=== PATIENT | male | born 1985 | race Caucasian/White ===

== ENCOUNTER 2017-08-06 16:14 | Emergency (ER) | payer SELFPAY ==
[2017-08-06 16:21] VITALS: BP 126/82
[2017-08-06] MEDS ORDERED: BOOSTRIX IM ONE (16:35)
[2017-08-06] MEDS ORDERED: TETRACAINE 0.5% OU PRN (16:35)
[2017-08-06] MEDS ORDERED: PERCOCET 5/325 PO ONE (16:35)
[2017-08-06] MEDS ORDERED: FUL-GLO OP ONE (16:35)
[2017-08-06] MEDS ORDERED: ISOPTO HOMATROPINE OS ONE (17:14)
--- NOTE | 2017-08-06 17:22 | Emergency Department Report ---
ED Eye Problem HPI - General Chief complaint: Eye Problems Stated complaint: LEFT EYE PAIN Time Seen by Provider: 08/06/17 16:31 Source: patient Mode of arrival: Ambulatory Limitations: No Limitations - History of Present Illness Initial comments: Mr. Moraes poked himself in the eye with the edge of a broom. chief complaint: eye pain, eye redness, eye injury -: Sudden Location: left eye Place: work If Injury: direct trauma Eye Symptoms: burning, pain, decreased vision, photophobia Severity: severe Severity scale (0 -10): 10 Consistency: constant - Related Data Previous Rx's Medication Instructions Recorded Last Taken Type Oxycodone HCl/Acetaminophen 1 each PO Q6HR PRN #12 tablet 08/06/17 Unknown Rx [Percocet 10/325 mg] Polymyxin B Sulf/Trimethoprim 10 ml OS Q3H 7 Days #10 drops 08/06/17 Unknown Rx [Polytrim Eye Drops] Allergies Allergy/AdvReac Type Severity Reaction Status Date / Time No Known Allergies Allergy Unverified 08/06/17 16:21 ED Review of Systems ROS: Stated complaint: LEFT EYE PAIN Other details as noted in HPI ED Past Medical Hx - Past Medical History Previous Medical History?: No - Surgical History Past Surgical History?: No - Medications Home Medications: Home Medications Medication Instructions Recorded Confirmed Last Taken Type Oxycodone HCl/Acetaminophen 1 each PO Q6HR PRN #12 tablet 08/06/17 Unknown Rx [Percocet 10/325 mg] Polymyxin B Sulf/Trimethoprim 10 ml OS Q3H 7 Days #10 drops 08/06/17 Unknown Rx [Polytrim Eye Drops] ED Physical Exam - General Limitations: No Limitations General appearance: alert, in no apparent distress - Head Head exam: Present: atraumatic, normocephalic - Eye Eye exam: Present: PERRL, EOMI, conjunctival injection. Absent: nystagmus, periorbital swelling, periorbital tenderness Pupils: Present: normal accommodation, other (40% of corneal involved with fluorescein uptake, negative Angelito sign) ED Course Vital Signs 08/06/17 08/06/17 16:19 16:58 Temperature 97.9 F Pulse Rate 60 Respiratory 16 18 Rate Blood Pressure 126/82 [Left] O2 Sat by Pulse 98 Oximetry ED Medical Decision Making - Medical Decision Making large left corneal abrasion after direct trauma: tdap provided in ED, rx: polytrim, percocet ophthalmology referral given, recommended 2 day f/u Critical care attestation.: If time is entered above; I have spent that time in minutes in the direct care of this critically ill patient, excluding procedure time. ED Disposition Clinical Impression: Corneal abrasion, left Disposition: DC-01 TO HOME OR SELFCARE Is pt being admited?: No Does the pt Need Aspirin: No Condition: Stable Instructions: Corneal Abrasion (ED) Prescriptions: Oxycodone HCl/Acetaminophen [Percocet 10/325 mg] 1 each PO Q6HR PRN #12 tablet PRN Reason: Pain Polymyxin B Sulf/Trimethoprim [Polytrim Eye Drops] 10 ml OS Q3H 7 Days #10 drops Referrals: LULY QUINTANA MD [Staff Physician] - 2-3 Days Forms: Work/School Release Form(ED) Time of Disposition: 17:20
== END 2017-08-06 18:16 | disposition home or self-care (01) ==
LOC: ED 16:14
DX: S05.02XA Injury of conjunctiva and corneal abrasion without foreign body, left eye, initial encounter (principal); X58.XXXA Exposure to other specified factors, initial encounter; Y93.89 Activity, other specified; Y92.89 Other specified places as the place of occurrence of the external cause; Y99.8 Other external cause status
CPT/HCPCS: 90471; 90715; 99282

== ENCOUNTER 2017-08-08 12:38 | Emergency (ER) | payer SELFPAY | END 2017-08-08 12:39 | disposition left against medical advice (07) | LOC: ED 12:38 | DX: S05.90XA Unspecified injury of unspecified eye and orbit, initial encounter (principal); Z53.21 Procedure and treatment not carried out due to patient leaving prior to being seen by health care provider; X58.XXXA Exposure to other specified factors, initial encounter; Y93.89 Activity, other specified; Y92.89 Other specified places as the place of occurrence of the external cause; Y99.8 Other external cause status ==